=== PATIENT | male | born 2000 | race Caucasian/White ===

== ENCOUNTER 2023-04-15 20:31 | Emergency (ER) | payer MEDICAID ==
[~2023-04-15] VITALS: Ht 165.1 cm; Wt 102.1 kg
[2023-04-15 20:40] VITALS: BP_SYST 154; PULSE 90; RESP 16; TEMP 97.9; O2SAT 100
== END 2023-04-15 21:40 | disposition left against medical advice (07) ==
LOC: SED 20:31
DX: I10 Essential (primary) hypertension (principal); Z53.21 Procedure and treatment not carried out due to patient leaving prior to being seen by health care provider
CPT/HCPCS: 99281